=== PATIENT | female | born 1985 | race African-American/Black ===

== ENCOUNTER 2017-06-28 22:26 | Emergency (ER) | payer BC, OTHER ==
[~2017-06-28] VITALS: Ht 170.2 cm; Wt 114.8 kg
[~2017-06-28 22:26] MED LIST: BACTRIM DS TAB1 EACH PO; BENADRYL ALLERG25 MG PO; BENADRYL25 MG; BENADRYL25 MG PO; DOXYCYCLINE 10100 MG PO; HYDROXYZINE HCL25 M2 OR; MEDROL DOSPAK21 TAB PO; MEDROLDOSEPACK PO; NOHOMEMEDICATIONS; NORCO 5-325 TA1 EACH PO; PEPCID AC20 M1 PO; PEPCID40 MG PO; PHENTERMINE H37.5 M1 PO; PREDNISONE 10 M10 M1 PO; PREDNISONE 10 M10 MG PO; PREDNISONE 20 M20 M1 PO; PREDNISONE 20 M20 MG PO; PREDNISONE 5 MG5 M1 PO; PREDNISONE50 MG PO; TRIAMCINOLONE A15 G1 TP; ULTRAM 50MG TAB50 MG PO; VISTARIL 25 MG25 M1 PO; XANAX 0.5 MG0.5 M1 PO; XANAX XR1 MG; XYZAL5 MG; XYZAL5 MG PO; ZANTAC 150MG T150 M1 PO; ZANTAC 7575 MG PO; ZANTAC150 M2 PO; ZOLOFT50 MG PO; ZYRTEC 10 MG TA10 MG PO
[2017-06-28 23:08] LABS: URINE BILIRUBIN NEGATIVE (Negative); URINE BLOOD 3+ (Negative); URINE CLARITY CLEAR; URINE COLOR YELLOW; URINE GLUCOSE-RANDOM* NEGATIVE (Negative); URINE KETONES NEGATIVE (Negative); URINE NITRITE-REFLEX NEGATIVE (Negative); URINE PROTEIN (DIPSTICK) NEGATIVE (Negative); URINE SPECIFIC GRAVITY 1.025 (1.005-1.035); URINE UROBILINOGEN 0.2 E.U./dl (0.2-1.0)
[2017-06-28 23:09] LABS: URINE LEUKOCYTES-REFLEX 1+ (Negative)
[2017-06-28 23:11] LABS: HEMATOCRIT 39.9 % (37.0-47.0); HEMOGLOBIN 13.5 gm/dL (12.0-15.0); MCH 30.3 pg (26.0-34.0); MCHC 33.9 g/dL (28.0-37.0); MCV 89.5 fL (80.0-100.0); PLATELET COUNT 265 thou/uL (150-400); RBC 4.46 mil/uL (4.20-5.00); RDW 12.8 % (10.5-14.5); WBC 5.3 thou/uL (4.0-11.0)
[2017-06-28 23:17] LABS: CALCIUM 9.2 mg/dL (8.5-10.1); CREATININE 0.7 mg/dL (0.6-1.0); POTASSIUM 3.6 mmol/L (3.5-5.1)
[2017-06-28 23:22] LABS: BACTERIA-REFLEX 1-9 Few /HPF (None Seen); CASTS None Seen /LPF (None Seen); MUCUS 0-3 Light strn/LPF (None Seen); SQUAMOUS 4-10 Moderate /LPF (0-3); URINE RBC 3-10 Few /HPF (0-2); URINE WBC-REFLEX 6-15 Few /HPF (0-5)
[2017-06-28 23:23] LABS: CRYSTALS None Seen /LPF (None Seen)
[2017-06-28 23:23] LABS: ALBUMIN 3.5 g/dL (3.4-5.0); TOTAL BILIRUBIN 0.3 mg/dL (<0.1-1.0); TOTAL PROTEIN 8.1 g/dL (6.4-8.2)
[2017-06-28 23:48] LABS: ABSOLUTE NEUTROPHILS 2.1 thou/uL (1.4-8.2); LARGE PLATELETS FEW
[2017-06-29] MEDS ORDERED: CIPROFLOXACIN500 M1 PO (01:11)
[2017-06-29] MEDS ORDERED: FLAGYL500 MG PO (01:11)
== END 2017-06-29 02:04 | disposition home or self-care (01) ==
LOC: ER 22:26
PROVIDERS: Emergency Medicine
DX: K52.9 Noninfective gastroenteritis and colitis, unspecified (principal); F17.210 Nicotine dependence, cigarettes, uncomplicated; Z88.0 Allergy status to penicillin; Z88.1 Allergy status to other antibiotic agents

== ENCOUNTER 2017-10-24 20:07 | Emergency (ER) | payer OTHER ==
[~2017-10-24] VITALS: Ht 170.2 cm; Wt 107.0 kg
[~2017-10-24 20:07] MED LIST changes: +CIPROFLOXACIN500 M1 PO; +FLAGYL500 MG PO
[2017-10-24] MEDS ORDERED: ULTRAM 50MG TAB50 MG PO (21:50)
[2017-10-24] MEDS ORDERED: CYCLOBENZAPRINE5 MG PO (21:50)
[2017-10-24 22:04] VITALS: BP 136/96
== END 2017-10-24 22:04 | disposition home or self-care (01) ==
LOC: ER 20:07
DX: S39.012A Strain of muscle, fascia and tendon of lower back, initial encounter (principal); F17.210 Nicotine dependence, cigarettes, uncomplicated; Z88.1 Allergy status to other antibiotic agents; Z88.0 Allergy status to penicillin; Z88.6 Allergy status to analgesic agent; V43.52XA Car driver injured in collision with other type car in traffic accident, initial encounter; Y93.89 Activity, other specified; Y92.89 Other specified places as the place of occurrence of the external cause; Y99.8 Other external cause status

== ENCOUNTER 2019-04-25 16:39 | Emergency (ER) | payer BC ==
[~2019-04-25] VITALS: Ht 170.2 cm; Wt 128.4 kg
[~2019-04-25 16:39] MED LIST changes: +CYCLOBENZAPRINE5 MG PO
[2019-04-25] MEDS ORDERED: NAPROSYN500 MG PO (17:51)
[2019-04-25 18:14] VITALS: BP 131/77
== END 2019-04-25 18:14 | disposition home or self-care (01) ==
LOC: ER 16:39
DX: M77.9 Enthesopathy, unspecified (principal); F17.210 Nicotine dependence, cigarettes, uncomplicated; Z88.0 Allergy status to penicillin; Z88.1 Allergy status to other antibiotic agents; Z98.51 Tubal ligation status

== ENCOUNTER 2021-02-03 07:57 | Emergency (ER) | payer OTHER ==
[~2021-02-03] VITALS: Ht 170.2 cm; Wt 107.5 kg
[~2021-02-03 07:57] MED LIST changes: +NAPROSYN500 MG PO
[2021-02-03] MEDS ORDERED: NAPROSYN500 M1 PO (08:23)
[2021-02-03] MEDS ORDERED: CLEOCIN HCL150 M1 PO (08:23)
[2021-02-03 08:27] VITALS: BP 144/92
== END 2021-02-03 08:27 | disposition home or self-care (01) ==
LOC: ER 07:57
DX: K04.7 Periapical abscess without sinus (principal)